=== PATIENT | male | born 1965 | race Caucasian/White ===

== ENCOUNTER → 2017-05-28 | Outpatient (CLI) | payer OTHER | END | disposition home or self-care (01) | LOC: CFH 15:10 | PROVIDERS: ATTEND Nurse Practitioner Primary Care | DX: M19.042 Primary osteoarthritis, left hand (principal); M19.041 Primary osteoarthritis, right hand ==

== ENCOUNTER → 2018-05-11 | Outpatient (CLI) | payer OTHER | END | disposition home or self-care (01) | LOC: CFH 14:57 | PROVIDERS: ATTEND Nurse Practitioner Primary Care | DX: D86.2 Sarcoidosis of lung with sarcoidosis of lymph nodes (principal); R06.02 Shortness of breath; R05 Cough; R07.9 Chest pain, unspecified; E78.2 Mixed hyperlipidemia | CPT/HCPCS: 71046 ==